=== PATIENT | male | born 1945 | race Caucasian/White ===

== ENCOUNTER → 2016-06-22 | Outpatient (CLI) | payer OTHER ==
[~2016-06-22] MED LIST: ASPIRINEC PO; CERTAGEN PO; NO MEDICATIONS
--- NOTE | ~2016-06-22 | US128 ---
[id number] [facility]. [facility] [address] [place], [place] [address] [id number] O MR#: [id number] Acc #: [id number] NAME: DOUG OBREGON : 1945 SEX: M STUDY DATE/TIME: 06/22/2016 13:34 UNIT: [facility] ROOM: STUDY DESCRIPTION: Thyroid Attending Physician: Willi Salmon Jr., M.D. Referring Physician: Willi Salmon Jr., M.D. Ordering Physician: Willi Salmon Jr., M.D. Primary Care Physician: Willi Salmon Jr., M.D. MEDICAL IMAGING REPORT This report is preliminary unless electronic signature is present EXAM Thyroid ultrasound, date 06/22/2016 CLINICAL HISTORY Thyroid nodule noted at screening exam. FINDINGS The gland is normal and symmetric in size and echotexture. Vascularity is within normal limits. There is a 2 mm lesion in the upper pole of the gland on the right of doubtful clinical significance. IMPRESSION Normal thyroid ultrasound. Dictated by... Cruzito Cooley M.D. THIS IS AN ELECTRONICALLY VERIFIED REPORT Cruzito Cooley M.D. at 06/23/2016 10:26 AM ANDRES/aleida TD: 06/22/2016 20:02 JOB #: [id number] MEDICAL IMAGING REPORT Page 1 of 1 COPY
== END | disposition home or self-care (01) ==
LOC: CGUS 13:12
DX: E04.1 Nontoxic single thyroid nodule (principal)
CPT/HCPCS: 76536